=== PATIENT | female | born 1945 | race Caucasian/White ===

== ENCOUNTER → 2016-10-23 | Day surgery (SDC) | payer MEDICARE, OTHER ==
[~2016-10-23] MED LIST: ADVAI250I PO; ALPR.5 PO; BACL10TA PO; BUSP5TAB PO; CARD240T2 PO; CYMB60CA PO; DIGO0.127 PO; FURO20 PO; HYDR12.56 PO; IPRAAER IN; KEPP500T3 OR; LACTATED RINGER'S 1000 ML INJ 1,000 ML ONE; LIDO5T TOP; MIRA33502 PO; MULTCAP OR; PERC5TAB12 PO; POTA-243 PO; PRED1TAB PO; PRED20 PO; PROPOFOL 200 MG/20 ML AMP IV ONE; PROT40TA PO; RISP0.5T20 PO; SUCR1TAB PO; TRAZ100T4 PO
--- NOTE | 2016-10-23 11:03 | GIPROC ---
[facility] [address] [facility] [place], [address] COLONOSCOPY PROCEDURE REPORT EXAM DATE: 10/23/2016 PATIENT NAME: Shantal Gaviria MR #: [id number] BIRTHDATE: 1945 ENDOSCOPIST: Yury Moran MD ORDER #: [id number] SPEECH LANGUAGE PATHOLOGY ASSISTANT: Lizz Ho RN STATUS: outpatient INDICATIONS: The patient is a 70 yr old female here for a colonoscopy due to unexplained diarrhea PROCEDURE PERFORMED: Colonoscopy with biopsy MEDICATIONS: None and Per Anesthesia. PREP QUALITY: good ESTIMATED BLOOD LOSS: None CONSENT: The patient understands the risks and benefits of the procedure and understands that these risks include, but are not limited to: sedation, allergic reaction, infection, perforation and/or bleeding. Alternative means of evaluation and treatment include, among others: physical exam, x-rays, and/or surgical intervention. The patient elects to proceed with this endoscopic procedure. medical equipment was checked for proper function. Hand hygiene and appropriate measures for infection prevention was taken. After the risks, benefits and alternatives of the procedure were thoroughly explained, Informed consent was verified, confirmed and timeout was successfully executed by the treatment team. A digital exam revealed no abnormalities of the rectum The EC-[id number] ([id number]) endoscope was introduced through the anus and advanced to the cecum, which was identified by both the appendix and ileocecal valve. The instrument was then slowly withdrawn as the colon was fully examined. COLON FINDINGS: The colonic mucosa appeared normal. Multiple random biopsies of the area were performed. Mild diverticulosis was noted in the descending colon and sigmoid colon. Retroflexed views revealed no abnormalities The scope was then completely withdrawn from the patient and the procedure terminated. PROCEDURE WITHDRAWAL TIME:7.3minutes ADVERSE EVENTS: There were no complications. IMPRESSIONS: 1. The colonic mucosa appeared normal; multiple random biopsies of the area were performed 2. Mild diverticulosis was noted in the descending colon and sigmoid colon 3. Retroflexed views revealed no abnormalities 4. Revealed no abnormalities of the rectum RECOMMENDATIONS: 1. Await biopsy results. Biopsy results will not be ready for 7-10 days. If you don't hear from us in two weeks, call our office for results. 2. High fiber diet. Avoid nuts, seeds, and popcorn. Chew your food well. 3. Follow-up: GI Clinic 4 week(s) 4. Yearly hemoccult RECALL: Return 10 years Colonoscopy Yury Moran MD eSigned: Yury Moran MD 10/23/2016 11:03 AM cc: Sedrick Loza M.D and Sadaf Faith
--- NOTE | 2016-10-23 11:05 | GIPROC ---
[facility] [address] [facility], [address] EGD PROCEDURE REPORT EXAM DATE: 10/23/2016 PATIENT NAME: Shantal Gaviria MR #: [id number] BIRTHDATE: 1945 ATTENDING: Yury Moran MD ORDER #: [id number] PRODUCTION ILLUSTRATOR: Lizz Ho RN STATUS: outpatient INDICATIONS: The patient is a 70 yr old female here for an EGD due to unexplained diarrhea PROCEDURE PERFORMED: EGD w/ biopsy MEDICATIONS: None, Per Anesthesia, None, and Per Anesthesia. TOPICAL ANESTHETIC: CONSENT: The patient understands the risks and benefits of the procedure and understands that these risks include, but are not limited to: sedation, allergic reaction, infection, perforation and/or bleeding. Alternative means of evaluation and treatment include, among others: physical exam, x-rays, and/or surgical intervention. The patient elects to proceed with this endoscopic procedure. medical equipment was checked for proper function. Hand hygiene and appropriate measures for infection prevention was taken. After the risks, benefits and alternatives of the procedure were thoroughly explained, Informed consent was verified, confirmed and timeout was successfully executed by the treatment team. The patient was anesthetized with topical anesthesia and the EC-3490Li ([id number]) endoscope was introduced through the mouth and advanced to the second portion of the duodenum. Retroflexed views revealed no abnormalities The gastroscope was then slowly withdrawn and removed. STOMACH: There was mild gastritis in the gastric antrum. Multiple biopsies were performed. The endoscopy was otherwise normal. DUODENUM: The duodenal mucosa appeared normal. Cold forcep biopsies were taken in the second portion. ADVERSE EVENTS: There were no complications. IMPRESSIONS: 1. There was mild gastritis in the gastric antrum; multiple biopsies were performed 2. Normal endoscopy otherwise 3. Normal duodenal mucosa 4. Retroflexed views revealed no abnormalities RECOMMENDATIONS: 1. Await biopsy results. Biopsy results will not be ready for 7-10 days. If you don't hear from us in two weeks, call our office for biopsy results. 2. Follow-up: GI clinic 4 week(s) PATIENT CONDITION: stable DISPOSITION: Home REPEAT EXAM: Yury Moran MD eSigned: Yury Moran MD 10/23/2016 11:05 AM cc: [facility]id [facility]
== END | disposition home or self-care (01) ==
LOC: ESDC 09:25
PROVIDERS: ATTEND Internal Medicine Gastroenterology
DX: R19.7 Diarrhea, unspecified (principal); K57.90 Diverticulosis of intestine, part unspecified, without perforation or abscess without bleeding; K29.70 Gastritis, unspecified, without bleeding
CPT/HCPCS: 00740; 00810; 43239; 45380; 88305; 88312; J3010; J7120